=== PATIENT | female | born 2000 ===

== ENCOUNTER 2022-06-08 09:42 | Inpatient (IN) ==
[2022-06-08] MEDS ORDERED: Lidocaine 1% 20 ML MDV INFILT PRN (10:05)
[2022-06-08] MEDS ORDERED: Famotidine 20 MG/2 ML VIAL IVP PRN (10:05)
[2022-06-08] MEDS ORDERED: Azithromycin 500 MG in 0.9 % Sodium Chloride 250 ML IVPB PRN (10:05)
[2022-06-08] MEDS ORDERED: *HR* Nalbuphine 10 MG/ML AMPUL IV PRN (10:05)
[2022-06-08] MEDS ORDERED: Metoclopramide 10 MG/2 ML VIAL IVP PRN (10:05)
[2022-06-08] MEDS ORDERED: Ondansetron 4 MG/2 ML VIAL IVP PRN (10:05)
[2022-06-08] MEDS ORDERED: Ringers Solution, Lactated 1,000 ML IVC SCH (10:15)
[2022-06-08] MEDS ORDERED: Penicillin G Potassium 5,000,000 UNIT in 0.9 % Sodium Chloride Mini Bag 100 ML IVPB ONE (10:22)
[2022-06-08 10:24] LABS: Basophils # 0.1 K/mcL (0.0-0.2); Basophils % 0.7 %; Eosinophils # 0.1 K/mcL (0.0-0.6); Eosinophils % 0.7 %; Hematocrit 38.5 % (35.3-44.9); Immature Granulocytes % 1.3 % (0-4); Lymphocytes # 1.8 K/mcL (0.6-4.6); Lymphocytes % 11.9 %; Mean Corpuscular HGB Conc 33.8 g/dL (31.6-35.5); Mean Corpuscular Hemoglobin 28.4 pg (28.0-33.3); Mean Corpuscular Volume 84.2 fL (83.0-100.0); Mean Platelet Volume 11.5 fL (9.4-12.4); Monocytes # 1.2 K/mcL (0.0-1.3); Monocytes % 7.7 %; Neutrophils # 11.6 K/mcL (1.6-8.9); Platelet Count 196 K/mcL (140-400); Red Blood Count 4.57 M/mcL (3.82-4.97); Segmented Neutrophils % 77.7 %; White Blood Count 14.9 K/mcL (4.3-11.1)
[2022-06-08] MEDS ORDERED: EPHEDrine 50 MG/ML VIAL IVP PRN (10:29)
[2022-06-08] MEDS ORDERED: Epidural Premix (fent/bupiv) 110 ML EP SCH (10:30)
[2022-06-08] MEDS ORDERED: Epidural Premix (fent/bupiv) 110 ML EP ONE (10:31)
[2022-06-08 12:32] LABS: Amphetamine Screen,Urine Negative ng/mL (Cutoff=1000); Barbiturate Screen,Urine Negative ng/mL (Cutoff=200); Benzodiazepines Screen,Urine Negative ng/mL (Cutoff=200); Cannabinoid Screen,Urine Positive ng/mL (Cutoff = 50); Cocaine Screen,Urine Negative ng/mL (Cutoff= 300); Opiate Screen,Urine Negative ng/mL (Cutoff=300); Phencyclidine Screen,Urine Negative ng/mL (Cutoff=25)
[2022-06-08] MEDS: Penicillin G Potassium 2,500,000 UNIT/105 ML MLS IVPB SCH ×2 (14:37→18:56)
[2022-06-08] MEDS ORDERED: *HR* FentaNYL (PF) 100 MCG/2 ML VIAL ONE (18:22)
[2022-06-08] MEDS ORDERED: Oxytocin 30 UNIT/503 ML BAG IVC ONE (19:43)
[2022-06-08] MEDS ORDERED: Measles/Mumps/Rubella Vacc 0.5 ML VIAL SQ PRN (21:08)
[2022-06-08] MEDS ORDERED: Benzocaine/Menthol 56 GM AEROSOL SPRAY TP PRN (21:08)
[2022-06-08] MEDS ORDERED: Ondansetron ODT 4 MG TAB.RAPDIS SL PRN (21:08)
[2022-06-08] MEDS ORDERED: Oxytocin 30 UNIT/503 ML BAG IVC SCH (21:08)
[2022-06-08] MEDS ORDERED: Lanolin 7 G OINT...G. TP PRN (21:08)
[2022-06-08] MEDS ORDERED: OXYTOCIN/RINGERS LACTATE 10 UNIT/166.6 ML BAG IVC ONE (21:08)
[2022-06-08] MEDS: Acetaminophen 325 MG TABLET PO SCH (21:18)
[2022-06-08 23:12] LABS: Adenovirus Not Detected (Not Detect); Bordetella Pertussis Not Detected (Not Detect); Chlamydophila pneumoniae Not Detected (Not Detect); Coronavirus 229E Not Detected (Not Detect); Coronavirus HKU1 Not Detected (Not Detect); Coronavirus NL63 Not Detected (Not Detect); Coronavirus OC43 Not Detected (Not Detect); Human Metapneumovirus Not Detected (Not Detect); Human Rhinovirus/Enterovirus Not Detected (Not Detect); Influenza A Subtype 2009 H1 Not Detected (Not Detect); Influenza B Not Detected (Not Detect); Mycoplasma pneumoniae Not Detected (Not Detect); Parainfluenza Virus 1 Not Detected (Not Detect); Parainfluenza Virus 2 Not Detected (Not Detect); Parainfluenza Virus 3 Not Detected (Not Detect); Parainfluenza Virus 4 Not Detected (Not Detect); Respiratory Syncytial Virus Not Detected (Not Detect); SARS-CoV-2 Not Detected (Not Detect)
[2022-06-09] MEDS: Ibuprofen 600 MG TABLET PO SCH ×5 (00:02→22:23)
[2022-06-09 04:36] LABS: Basophils # 0.1 K/mcL (0.0-0.2); Basophils % 0.5 %; Eosinophils # 0.3 K/mcL (0.0-0.6); Eosinophils % 1.8 %; Hematocrit 35.5 % (35.3-44.9); Hemoglobin 11.9 g/dL (11.5-15.4); Immature Granulocytes % 0.9 % (0-4); Lymphocytes # 2.5 K/mcL (0.6-4.6); Lymphocytes % 15.7 %; Mean Corpuscular HGB Conc 33.5 g/dL (31.6-35.5); Mean Corpuscular Hemoglobin 28.3 pg (28.0-33.3); Mean Corpuscular Volume 84.5 fL (83.0-100.0); Mean Platelet Volume 11.6 fL (9.4-12.4); Monocytes # 1.6 K/mcL (0.0-1.3); Monocytes % 9.6 %; Neutrophils # 11.5 K/mcL (1.6-8.9); Nucleated Red Blood Cells 0.1 /100 WBC (0); Platelet Count 182 K/mcL (140-400); Red Cell Distribution Width 13.8 % (11.5-14.5); Segmented Neutrophils % 71.5 %; White Blood Count 16.1 K/mcL (4.3-11.1)
[2022-06-09] MEDS: Acetaminophen 325 MG TABLET PO SCH ×4 (06:44→22:23)
[2022-06-09] MEDS: Prenatal Vit/FA 1 EACH TABLET PO SCH (08:31)
[2022-06-09 19:20] VITALS: O2SAT 98
[2022-06-10 07:37] VITALS: BP 112/79; PULSE 78; TEMP 98
[2022-06-10] MEDS: Acetaminophen 325 MG TABLET PO SCH ×3 (10:25→17:21)
[2022-06-10] MEDS: Prenatal Vit/FA 1 EACH TABLET PO SCH (10:26)
[2022-06-10] MEDS: Ibuprofen 600 MG TABLET PO SCH ×3 (10:27→18:09)
== END 2022-06-10 18:10 | disposition home or self-care (01) | DRG 560 ==
LOC: 1NENULAB → OBSVTOIN 09:42 → 1NENUOBS 22:35
PROVIDERS: ADMIT Obstetrics & Gynecology; ATTEND Obstetrics & Gynecology